=== PATIENT | male | born 1975 | race African-American/Black ===

== ENCOUNTER 2016-04-01 18:09 | Emergency (ER) | payer SELFPAY ==
[2016-04-01] MEDS ORDERED: PROPARACAINE 0.5% OPHTH DROPS 15 ML ONE (18:34)
[2016-04-01] MEDS ORDERED: HYDROcod/ACET 5/325 Prepack 6 PO STA (18:42)
[2016-04-01] MEDS ORDERED: HYDROcod/ACET 5/325 Prepack 6 PO ONE (18:45)
== END 2016-04-01 18:58 | disposition home or self-care (01) ==
DX: G44.209 Tension-type headache, unspecified, not intractable (principal); H53.142 Visual discomfort, left eye; R03.0 Elevated blood-pressure reading, without diagnosis of hypertension
CPT/HCPCS: 99283; J3490

== ENCOUNTER 2016-04-03 21:05 | Emergency (ER) | payer SELFPAY ==
[2016-04-03] MEDS ORDERED: SODIUM CHLORIDE 0.9% 1,000 ML IV ONE (21:35)
[2016-04-03] MEDS ORDERED: KETOROLAC 60 MG/2 ML VIAL IVP STA (21:35)
[2016-04-03] MEDS ORDERED: METOCLOPRAMIDE 10 MG/2 ML VIAL IVP STA (21:36)
[2016-04-03] MEDS ORDERED: diphenhydrAMINE INJ 50 MG/ML VIAL IVP STA (21:36)
[2016-04-03] MEDS ORDERED: METOCLOPRAMIDE 10 MG/2 ML VIAL IVP ONE (21:42)
[2016-04-03] MEDS ORDERED: diphenhydrAMINE INJ 50 MG/ML VIAL ONE ×2 (21:42→22:00)
[2016-04-03] MEDS ORDERED: KETOROLAC 30 MG/ML VIAL ONE (21:42)
[2016-04-03] MEDS ORDERED: KETOROLAC 60 MG/2 ML VIAL IM STA (22:00)
[2016-04-03] MEDS ORDERED: KETOROLAC 60 MG/2 ML VIAL ONE (22:00)
[2016-04-03] MEDS ORDERED: diphenhydrAMINE INJ 50 MG/ML VIAL IM STA (22:01)
== END 2016-04-03 22:29 | disposition home or self-care (01) ==
DX: R51 Headache (principal); H57.10 Ocular pain, unspecified eye